=== PATIENT | male | born 1950 | race Caucasian/White ===

== ENCOUNTER 2016-09-07 13:58 | Emergency (ER) | payer OTHER, MEDICAID ==
[~2016-09-07] VITALS: Ht 157.5 cm; Wt 60.8 kg
[2016-09-07 14:05] VITALS: BP 122/56; PULSE 67; RESP 18; TEMP 98.2; O2SAT 99
--- NOTE | 2016-09-07 14:30 | NUR ---
Pt placed to ER waiting room in wheel chair. Pt in stable condition.
--- NOTE | 2016-09-07 14:36 | NUR ---
BROUGHT BACK VIA WHEELCHAIR TO BED #4, REPORT GIVEN TO SONAL
--- NOTE | 2016-09-07 14:45 | NUR ---
Pt presents to ED c/o generalized body aches. Pt dutch speaking only. Pt h/o htn,dm,hyperlipidemia
[2016-09-07 15:51] LABS: BASOPHILS % (AUTO) 0.7 % (0.0-2.0); EOSINOPHILS # (AUTO) 0.4 K/uL (0.0-0.4); HEMATOCRIT 34.6 % (36-54); LYMPHOCYTES # (AUTO) 0.7 K/uL (1.0-5.5); MEAN CORPUSCULAR HEMOGLOBIN 34 pg (27-31); MEAN CORPUSCULAR HGB CONC 35 % (32-36); MEAN CORPUSCULAR VOLUME 97 fL (79.0-98.0); MONOCYTES # (AUTO) 0.4 K/uL (0.0-1.0); MONOCYTES % (AUTO) 7.1 % (1.7-9.3); NEUTROPHILS # (AUTO) 4.4 K/uL (1.8-7.7); NEUTROPHILS % (AUTO) 74.2 % (40.0-70.0); PLATELET COUNT (AUTO) 229 K/uL (130-430); RED BLOOD CELL COUNT(AUTO) 3.56 MIL/uL (4.2-6.2); RED CELL DISTRIBUTION WIDTH 15.9 % (9.0-15.0); WHITE BLOOD COUNT (AUTO) 5.9 K/uL (4.8-10.8)
[2016-09-07 16:07] LABS: CALCIUM 8.6 mg/dL (8.4-11.0); CREATININE 6.44 mg/dL (0.55-1.30); POTASSIUM 4.7 mmol/L (3.5-5.1)
[2016-09-07 16:11] LABS: ALBUMIN 3.3 g/dL (3.4-4.8); TOTAL BILIRUBIN 0.6 mg/dL (0.0-1.0); TOTAL PROTEIN, SERUM 7.5 g/dL (6.4-8.3)
--- NOTE | 2016-09-07 16:20 | NUR ---
Pt sleeping easily arousable. Pt has no acute distress noted.
[2016-09-07] MEDS ORDERED: MORPHINE 4 MG/ML INJ. SYRINGE IVP ONE (17:30)
[2016-09-07] MEDS ORDERED: MORPHINE 4 MG/ML INJ. SYRINGE IM ONE (17:30)
[2016-09-07] MEDS ORDERED: INSULIN REGULAR, HUMAN 10 UNITS/0.1 ML INJ SUBCUT ONE ×2 (17:30)
--- NOTE | 2016-09-07 17:30 | NUR ---
Pt medicated toleratedd well.
[2016-09-07 17:48] LABS: CALCIUM 8.7 mg/dL (8.4-11.0); CREATININE 6.68 mg/dL (0.55-1.30)
[2016-09-07 18:47] VITALS: BP 120/58; PULSE 67; RESP 18; TEMP 98.2; O2SAT 99
--- NOTE | 2016-09-07 18:50 | NUR ---
Patient given written and verbal discharge instructions and verbalizes understanding. ER MD discussed with patient the results and treatment provided. Given copies of tests performed in ER. Patient in stable condition. ID arm band removed. Rx of gabapentin given. Patient educated on pain management and to follow up with PMD. Pain Scale 2. Opportunity for questions provided and answered.
== END 2016-09-07 18:50 | disposition home or self-care (01) ==
LOC: SED 13:58
DX: I12.0 Hypertensive chronic kidney disease with stage 5 chronic kidney disease or end stage renal disease (principal); N18.6 End stage renal disease; G62.9 Polyneuropathy, unspecified; Z97.8 Presence of other specified devices
CPT/HCPCS: 36415; 80048; 80053; 82550; 83735; 84100; 84484; 85025; 85610; 93005; 96372; 99285; J1815; J2270